=== PATIENT | female | born 1995 | race Caucasian/White ===

== ENCOUNTER 2018-03-22 02:59 | Emergency (ER) | payer OTHER ==
[2018-03-22] MEDS ORDERED: ALUM & MAG HYDROX-SIMETHICONE 30 ML, LIDOCAINE VISCOUS 2% 15 ML PO ONE ×2 (03:28)
[2018-03-22] MEDS ORDERED: PROMETHAZINE HCL 25 MG TAB PO ONE (03:30)
[2018-03-22] MEDS ORDERED: ALUM & MAG HYDROX-SIMETHICONE 30 ML UD ONE (03:33)
[2018-03-22] MEDS ORDERED: LIDOCAINE HCL 2% (MOUTH-THROAT) 15 ML UD ONE (03:33)
--- NOTE | 2018-03-22 04:21 | RAD ---
EXAM: Acute abdominal series. INDICATION: Abdominal pain, acute. COMPARISON: None. FINDINGS: Cardiac silhouette: Unremarkable. Karoline: Unremarkable. Lobar consolidation: None. Pleural effusion: None. Pneumothorax: None. Other: None. Intraperitoneal free air: Negative. Bowel: No dilated loops of small bowel or air-fluid levels. Bones: Unremarkable. Other: None. IMPRESSION: 1. Nonspecific, nonobstructed bowel gas pattern. Electronically signed by: Harlan Damon MD 03/22/2018 4:20 AM [facility] Workstation: [id number]
[2018-03-22] MEDS ORDERED: cefTRIAXone SODIUM 1 GM VIAL IM ONE (05:40)
[2018-03-22] MEDS ORDERED: SUCRALFATE 1 GM/10 ML 1 GM UD PO ONE (05:40)
[2018-03-22] MEDS ORDERED: PANTOPRAZOLE SODIUM TAB 40 MG PO ONE (05:40)
[2018-03-22] MEDS ORDERED: cefTRIAXone SODIUM 1 GM in SODIUM CHL 0.9% 50ML MIN-BAG+ 50 ML IVPB ONE (05:45)
[2018-03-22] MEDS ORDERED: SODIUM CHLORIDE 0.9% 1000ML 1,000 ML IVS ONE (05:45)
[2018-03-22] MEDS ORDERED: cefTRIAXone SODIUM 1 GM VIAL ONE (05:49)
[2018-03-22] MEDS ORDERED: SODIUM CHL 0.9% 50ML MIN-BAG+ 50 ML IVPB ONE (05:50)
--- NOTE | 2018-03-22 06:33 | CT ---
CT abdomen and pelvis with contrast on 03/22/2018 CLINICAL INDICATION: Epigastric and right upper quadrant pain, elevated LFTs, nausea and vomiting TECHNIQUE: Multiple axial images are obtained throughout the abdomen and pelvis following the administration of IV contrast. This exam was performed according to our departmental dose-optimization program, which includes automated exposure control, adjustment of the mA and/or kV according to patient size and/or use of iterative reconstruction technique. Total DLP is 316.34 mGy*cm. COMPARISON: 07/18/2014 FINDINGS: Abdomen: The lung bases are clear. The gallbladder is distended. There is mild gallbladder wall thickening. Mild periportal edema is noted in the liver. Would recommend follow-up right upper quadrant ultrasound to better evaluate the gallbladder. The combination of findings of gallbladder wall thickening and periportal edema also raises a question of hepatitis and please correlate clinically. The solid abdominal organs are otherwise unremarkable. There is no abdominal adenopathy. There is no free fluid or free air within the abdomen. The abdominal portion of the GI tract is unremarkable. Pelvis: Pelvic portion of the GI tract including the appendix is unremarkable. Small amount of free fluid in the pelvis is likely physiologic. Pelvic organs appear unremarkable by CT. There is no pelvic adenopathy. No acute bony abnormality is noted. IMPRESSION: Abnormal appearance of the gallbladder with also mild periportal edema. Would recommend follow-up right upper quadrant ultrasound to exclude gallbladder disease. The combination of findings also raises a question of hepatitis as an etiology and recommend clinical correlation. Electronically signed by: Yannick Mckoy 03/22/2018 6:31 AM [employer]
--- NOTE | 2018-03-22 06:47 | ED.PDOC ---
History of Present Illness - General Chief Complaint: Abdominal Pain Stated Complaint: sob and vomiting, abd pain Time Seen by Provider: 03/22/18 03:20 Source: patient Exam Limitations: no limitations - History of Present Illness Initial Comments: The patient is a 22-year-old female presenting after 6-8 hours of epigastric and right upper quadrant pain with associated nausea and vomiting. No fevers. No prior symptoms. The patient delivered a baby about a month ago. On exam the patient is obviously hurting. She does have significant guarding to the right upper quadrant. Timing/Duration: unsure Severity: moderate Improving Factors: nothing Worsening Factors: nothing Associated Symptoms: loss of appetite, malaise, nausea/vomiting Allergies/Adverse Reactions: Allergies NO KNOWN ALLERGY Allergy (Verified 10/18/15 12:39) Home Medications: Ambulatory Orders Ondansetron [Zofran Odt] 4 mg PO Q6HR PRN #10 tab 10/18/15 Azithromycin Tab [Zithromax Tab] 250 mg PO QDAC #6 tab 03/08/16 Fexofenadine-Pseudoephedrine [Margret-D 12 Hour Allergy 60-120 mg] 1 tab PO BID #10 tab 03/08/16 Review of Systems - Review of Systems Constitutional: States: no symptoms reported EENTM: States: no symptoms reported Respiratory: States: no symptoms reported Cardiology: States: no symptoms reported Gastrointestinal/Abdominal: States: abdominal pain, nausea, vomiting. Denies: constipation, diarrhea Genitourinary: States: no symptoms reported Musculoskeletal: States: no symptoms reported Skin: States: no symptoms reported Neurological: States: no symptoms reported Endocrine: States: no symptoms reported All other Systems: No Change from Baseline Past Medical History (General) - Patient Medical History Hx Seizures: No Hx Stroke: No Hx Dementia: No Hx Asthma: No Hx of COPD: No Hx Cardiac Disorders: No Hx Congestive Heart Failure: No Hx Pacemaker: No Hx Hypertension: No Hx Thyroid Disease: No Hx Diabetes: No Hx Gastroesophageal Reflux: Yes - gastristis, ulcers, IBS Hx Renal Disease: No Hx Cancer: No Hx of HIV: No Hx Hepatitis C: No Hx MRSA: Yes MRSA Source:: Wound Surgical History: other - Vaccination History Hx Tetanus, Diphtheria Vaccination: Yes Hx Influenza Vaccination: Yes Hx Pneumococcal Vaccination: No Immunizations Up to Date: Yes - Social History Hx Tobacco Use: No Hx Chewing Tobacco Use: No Hx Alcohol Use: No Hx Substance Use: No Hx Substance Use Treatment: No Hx Depression: Yes - on zoloft Hx Physical Abuse: No Hx Emotional Abuse: No Hx Suspected Abuse: No - Activities of Daily Living Hospice Agency (if applicable):: None - Female History Patient is a Female of Child Bearing Age (10 -59 yrs old): Yes Hx Last Menstrual Period: 05/18/17 Patient : No - vaginal delivery on 02/17/18 (32 days ago) - Triage Comment ED Triage Comment: pt has hx of anxiety and depression Family Medical History - Family History Mother Family History: No Known Living Status: Still Living Physical Exam - Physical Exam General Appearance: Alert, Comfortable, No apparent distress Eye Exam: bilateral normal Ears, Nose, Throat: hearing grossly normal, normal ENT inspection, normal pharynx Neck: full range of motion, supple, normal inspection Respiratory: lungs clear, normal breath sounds, no respiratory distress, no accessory muscle use Cardiovascular/Chest: normal peripheral pulses, regular rate, rhythm, no edema Peripheral Pulses: radial,right: 2+, radial,left: 2+, dorsalis pedis,right: 2+, dorsalis pedis,left: 2+ Gastrointestinal/Abdominal: soft, other - right upper quadrant tenderness to palpation. No evidence of any bruising. No definite palpable mass. She does have some guarding. 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, alert, normal mood/affect, oriented x 3 Skin Exam: normal color Comments: Vital Signs - 24 hr 03/22/18 03/22/18 03/22/18 03:17 04:07 05:00 Temperature 98.8 F 97.9 F 97.8 F Pulse Rate [ 83 64 74 pulse ox] Respiratory 18 18 18 Rate Blood Pressure 124/85 139/78 121/88 [Right Arm] O2 Sat by Pulse 99 99 99 Oximetry 03/22/18 05:56 Temperature 98.1 F Pulse Rate [ 68 pulse ox] Respiratory 18 Rate Blood Pressure 116/78 [Right Arm] O2 Sat by Pulse 99 Oximetry Progress - Progress Progress: 03/22/18 06:49 the patient's 22-year-old female presenting with right upper quadrant and epigastric pain for the last 6-8 hours prior to arrival with some associated nausea and vomiting. She does have a new elevation of her AST and ALT. CT scan is concerning for gallbladder pathology and right upper quadrant ultrasound is recommended for further evaluation. The patient has received 1 dose of Rocephin. She does also have a small urinary tract infection. Urine will be cultured. Transferring for further evaluation to [facility] where ultrasound is available over the weekend. she has received a liter of IV fluids as well. - Results/Orders Results/Orders: CT scan of abdomen and pelvis with IV contrast shows moderately distended gallbladder with mild gallbladder wall thickening. Ultrasound is recommended for further evaluation. Laboratory Tests 03/22/18 03/22/18 03/22/18 03:49 03:49 03:49 WBC 7.3 RBC 5.14 Hgb 12.1 Hct 38.1 MCV 74.1 L MCH 23.5 L MCHC 31.8 L RDW 24.0 H Plt Count 244 MPV 8.7 Absolute Neuts (auto) 5.00 Absolute Lymphs (auto) 1.30 Absolute Monos (auto) 0.80 Absolute Eos (auto) 0.10 Absolute Basos (auto) 0.00 Neutrophils % 69.2 Lymphocytes % 18.0 L Monocytes % 11.0 H Eosinophils % 1.3 Basophils % 0.5 Normal RBC Morphology Plts shey adequate D-Dimer, Quantitative Sodium 140 Potassium 3.5 L Chloride 106 Carbon Dioxide 25 Anion Gap 12.5 BUN 11 Creatinine 0.76 BUN/Creatinine Ratio 14.5 Random Glucose 93 Serum Osmolality 278.5 Lactic Acid 1.3 Calcium 9.4 Magnesium 1.9 Total Bilirubin 1.0 AST 132 H ALT 67 H Alkaline Phosphatase 143 Creatine Kinase 46 CK-MB (CK-2) 0.5 CK-MB (CK-2) % Not Reportable Troponin I < 0.02 B-Natriuretic Peptide 24.0 Serum Total Protein 7.4 Albumin 4.2 Globulin 3.2 Albumin/Globulin Ratio 1.3 Amylase 45 Lipase 56 H TSH 0.58 Urine Color Urine Appearance Urine pH Ur Specific [place] Urine Protein Urine Glucose (UA) Urine Ketones Urine Blood Urine Nitrite Urine Bilirubin Urine Urobilinogen Ur Leukocyte Esterase Urine RBC Urine WBC Ur Epithelial Cells Urine Bacteria Urine Mucus Urine HCG, Qual 03/22/18 03/22/18 03/22/18 03:49 03:49 03:49 WBC RBC Hgb Hct MCV MCH MCHC RDW Plt Count MPV Absolute Neuts (auto) Absolute Lymphs (auto) Absolute Monos (auto) Absolute Eos (auto) Absolute Basos (auto) Neutrophils % Lymphocytes % Monocytes % Eosinophils % Basophils % Normal RBC Morphology D-Dimer, Quantitative 0.30 Sodium Potassium Chloride Carbon Dioxide Anion Gap BUN Creatinine BUN/Creatinine Ratio Random Glucose Serum Osmolality Lactic Acid Calcium Magnesium Total Bilirubin AST ALT Alkaline Phosphatase Creatine Kinase CK-MB (CK-2) CK-MB (CK-2) % Troponin I B-Natriuretic Peptide Serum Total Protein Albumin Globulin Albumin/Globulin Ratio Amylase Lipase TSH Urine Color Yellow Urine Appearance Clear Urine pH 6.5 Ur Specific [place] 1.025 Urine Protein Negative Urine Glucose (UA) Negative Urine Ketones Trace Urine Blood Moderate H Urine Nitrite Negative Urine Bilirubin Negative Urine Urobilinogen 1.0 Ur Leukocyte Esterase Trace H Urine RBC 5-10 H Urine WBC 5-10 H Ur Epithelial Cells 3-5 Urine Bacteria 1+ Urine Mucus Large Urine HCG, Qual Negative Departure - Departure Clinical Impression: Right upper quadrant pain Urinary tract infection Qualifiers: Urinary tract infection type: acute cystitis Hematuria presence: without hematuria Qualified Code(s): N30.00 - Acute cystitis without hematuria Disposition: Transfer to Hospital Condition: Fair Departure Forms: ED Discharge - Pt. Copy, Patient Portal Self Enrollment Referrals: ANJANA SOLORZANO IV, [employer] [Primary Care Provider] - 1-2 Weeks Home Medications: Ambulatory Orders Ondansetron [Zofran Odt] 4 mg PO Q6HR PRN #10 tab 10/18/15 Azithromycin Tab [Zithromax Tab] 250 mg PO QDAC #6 tab 03/08/16 Fexofenadine-Pseudoephedrine [Margret-D 12 Hour Allergy 60-120 mg] 1 tab PO BID #10 tab 03/08/16 Transfer to Outside Facility - Transfer Information Accepting Provider:: dr garg Accepting Facility: [facility] Reason for Transfer: specialized care not available
[2018-03-22 07:03] VITALS: TEMP 97.8
[2018-03-22 08:06] VITALS: BP 112/69; O2SAT 98
== END 2018-03-22 08:30 | disposition short-term general hospital (02) ==
LOC: ER 02:59
DX: N30.00 Acute cystitis without hematuria (principal); R10.11 Right upper quadrant pain; K58.9 Irritable bowel syndrome, unspecified; F32.9 Major depressive disorder, single episode, unspecified; Z79.899 Other long term (current) drug therapy
CPT/HCPCS: 36415; 74019; 74177; 80053; 81001; 81025; 82150; 82550; 82553; 83605; 83690; 83735; 83880; 84443; 84484; 85025; 85379; J0696; J7030; J7050; Q0169

== ENCOUNTER 2018-05-05 06:24 | Emergency (ER) | payer MEDICAID, OTHER ==
[2018-05-05 06:35] VITALS: TEMP 99.9
--- NOTE | 2018-05-05 07:27 | RAD ---
EXAM DESCRIPTION: Chest,2 Views CLINICAL HISTORY: coughing x's 4 days COMPARISON: None available FINDINGS: The cardiomediastinal silhouette is unremarkable. There is no airspace consolidation or pleural effusion. The bronchovascular markings are within normal limits, and the lungs are not hyperinflated. There is no pneumothorax or acute fracture. IMPRESSION: Negative exam. Electronically signed by: Niko Terrell MD 05/05/2018 7:26 AM [facility]
[2018-05-05] MEDS ORDERED: methylPREDNISolone SODIUM SUC 125 MG/2 ML VIAL IV ONE (07:33)
--- NOTE | 2018-05-05 07:33 | ED.PDOC ---
History of Present Illness - General Chief Complaint: Respiratory Problem Stated Complaint: congestion,coughing,sore throat, ear pain, aching Time Seen by Provider: 05/05/18 07:16 Source: patient Exam Limitations: no limitations - History of Present Illness Comments: Nasal congestion,coughing,sore throat, bl ear pain, myalgias. 4 d. KNMA Timing/Duration: constant Cough Quality/Degree: mild, dry cough Possible Cause: illness exposure Improving Factors: nothing Worsening Factors: nothing Associated Symptoms: earache, fever/chills, muscle aches, nasal congestion Respiratory Risk Factors: exposure to illness Allergies/Adverse Reactions: Allergies NO KNOWN ALLERGY Allergy (Verified 05/05/18 06:33) Home Medications: Ambulatory Orders Amoxicillin & Pot Clavulanate [Augmentin] 875 mg PO BID #20 tab 05/05/18 Sertraline HCl [Zoloft] 50 mg PO DAILY 05/05/18 Review of Systems - Review of Systems Constitutional: States: chills, diaphoresis, fever EENTM: States: ear pain, nose congestion, throat pain Respiratory: States: cough. Denies: short of breath, wheezing Cardiology: Denies: chest pain, palpitations Gastrointestinal/Abdominal: Denies: abdominal pain, diarrhea, nausea Genitourinary: States: no symptoms reported Musculoskeletal: States: other - MYALGIAS. Denies: neck pain Skin: States: no symptoms reported Neurological: States: no symptoms reported. Denies: headache Endocrine: States: no symptoms reported Hematologic/Lymphatic: States: no symptoms reported All other Systems: Reviewed and Negative Past Medical History (General) - Patient Medical History Hx Seizures: No Hx Stroke: No Hx Dementia: No Hx Asthma: No Hx of COPD: No Hx Cardiac Disorders: No Hx Congestive Heart Failure: No Hx Pacemaker: No Hx Hypertension: No Hx Thyroid Disease: No Hx Diabetes: No Hx Gastroesophageal Reflux: No Hx Renal Disease: No Hx Cancer: No Hx of HIV: No Hx Hepatitis C: No Hx MRSA: Yes MRSA Source:: Wound Surgical History: cholecystectomy - Vaccination History Hx Tetanus, Diphtheria Vaccination: Yes Hx Influenza Vaccination: Yes Hx Pneumococcal Vaccination: No - Social History Hx Tobacco Use: No Hx Chewing Tobacco Use: No Hx Alcohol Use: No Hx Substance Use: No Hx Substance Use Treatment: No Hx Depression: Yes Hx Physical Abuse: No Hx Emotional Abuse: No Hx Suspected Abuse: No - Female History Hx Last Menstrual Period: 05/18/17 Patient : No - vaginal delivery on 02/17/18 (32 days ago) Family Medical History - Family History Mother Family History: No Known Living Status: Still Living Physical Exam - Physical Exam General Appearance: Alert, Other - UNCOMFORTABLE Eye Exam: bilateral normal ENT Exam: pharynx normal, TM red - BL Neck: non-tender, full range of motion, supple, normal inspection Respiratory: lungs clear, normal breath sounds, no respiratory distress Cardiovascular/Chest: normal peripheral pulses, regular rate, rhythm, no murmur Extremity: normal range of motion, non-tender, normal inspection Neurologic: can pusher II-XII nml as tested, no motor/sensory deficits, alert, oriented x 3 Skin Exam: normal color, warm/dry Lymphatic: other - L CERVICAL LAD Progress - Progress Progress: 05/05/18 07:41 RAPID STREP AND FLU NEG. 05/05/18 07:42 CXR NEG BL O.M. THUS GIVING ABX AND STEROIDS FOR THE TM PAIN AND MYALGIAS. THERE IS ADDITIONALLY A VIRAL URI COMPONENT WITH THE MYALGIAS WHICH WILL NOT BE HELPED BY ABX. I INFORMED PT IT WILL TAKE APPROX 1 WEEK TO FEEL BETTER. Departure - Departure Clinical Impression: Acute otitis media, bilateral, Myalgia, Elevated temperature due to infection Upper respiratory infection Qualifiers: URI type: unspecified viral URI Qualified Code(s): J06.9 - Acute upper respiratory infection, unspecified Disposition: Discharge to Home or Self Care Condition: Good Departure Forms: ED Discharge - Pt. Copy, Patient Portal Self Enrollment Instructions: Ear Infections (Otitis Media) (DC) Diet: resume usual diet Activity: increase activity as tolerated Prescriptions: Amoxicillin & Pot Clavulanate [Augmentin] 875 mg PO BID #20 tab Home Medications: Ambulatory Orders Amoxicillin & Pot Clavulanate [Augmentin] 875 mg PO BID #20 tab 05/05/18 Sertraline HCl [Zoloft] 50 mg PO DAILY 05/05/18 Additional Instructions: Get plenty of rest and drink plenty of fluids. Take ibuprofen or tylenol for fevers or body aches. It will take up to 1 week to feel back to normal.
[2018-05-05] MEDS ORDERED: cefTRIAXone SODIUM 1 GM in SODIUM CHL 0.9% 50ML MIN-BAG+ 50 ML IVPB ONE (07:35)
[2018-05-05] MEDS ORDERED: cefTRIAXone SODIUM 1 GM VIAL ONE (07:38)
[2018-05-05] MEDS ORDERED: SODIUM CHL 0.9% 50ML MIN-BAG+ 50 ML IVPB ONE (07:39)
[2018-05-05 07:59] VITALS: O2SAT 98
[2018-05-05 08:21] VITALS: BP 127/79
== END 2018-05-05 08:22 | disposition home or self-care (01) ==
LOC: ER 06:24
DX: J06.9 Acute upper respiratory infection, unspecified (principal); H66.93 Otitis media, unspecified, bilateral; M79.10 Myalgia, unspecified site; F32.9 Major depressive disorder, single episode, unspecified
CPT/HCPCS: 71046; 87070; 87502; 87880; J0696; J2930; J7050